=== PATIENT | female | born 1985 | race African-American/Black ===

== ENCOUNTER 2016-07-23 19:11 | Emergency (ER) | payer SELFPAY ==
[~2016-07-23] VITALS: Ht 160 cm; Wt 54.4 kg
[2016-07-23] MEDS ORDERED: NKM (19:44)
[2016-07-23] MEDS ORDERED: BACITRACIN1 APPLIC TOPIC (20:11)
[2016-07-23] MEDS ORDERED: KEFLEX500 MG ORAL (20:11)
[2016-07-23 20:30] VITALS: BP 122/86
[2016-07-23] MEDS: TdaP Vaccine 0.5ml Syr IM ONE (20:37)
--- NOTE | 2016-07-23 22:26 | Emergency Room Report ---
History of Present Illness General Chief Complaint: Laceration Source: Patient Present Illness HPI The patient is a 30-year-old female presenting with right leg pain which began 3 weeks prior. The patient states that she was exercising and hit her cain on a metal box. Pain is described as a 5/10 dull ache and does not radiate from the mid lower leg. Patient has also noticed a white to yellow discharge from the area. Pain is worse with touch. Patient denies any other symptoms including N, V,F, chills, numbness/tingling. Allergies: Coded Allergies: No Known Allergies (Unverified , 07/23/16) Patient History Past Medical History: see triage record Pertinent Family History: none Last Menstrual Period: 06/26/16 Now: No : 1 Para: 0 Reviewed Nursing Documentation: PMH: Agreed, PSxH: Agreed Nursing Documentation-PMH Hx Asthma: Yes Review of Systems All Other Systems: negative except mentioned in HPI Physical Exam Vital Signs Date Time Temp Pulse Resp B/P Pulse Ox O2 Delivery O2 Flow Rate FiO2 07/23/16 19:39 97.9 79 16 122/86 95 Room Air Sp02 EP Interpretation: reviewed, normal General Appearance: no apparent distress, alert, GCS 15, non-toxic Head: normocephalic, atraumatic Eyes: bilateral eye PERRL, bilateral eye normal inspection Musculoskeletal: normal range of motion, tender - TTP over mid tibia Neurologic: alert, oriented x3, responsive, motor strength/tone normal, sensory intact, speech normal Psychiatric: judgement/insight normal, memory normal, mood/affect normal, no suicidal/homicidal ideation Skin: other - R mid tibia: erythema and white DC Lymphatic: no adenopathy Medical Decision Making PA Attestation Dr. Calix is my supervising physician. Patient management was discussed with my supervising physician Diagnostic Impression: Primary Impression: Wound infection ER Course The patient is a 30-year-old female presenting with right leg pain which began 3 weeks prior. Ddx considered include but not limited to sprain/strain, fracture, contusion, cellulitis, abscess Physical exam: Vitals are within normal limits. No apparent distress Right lower leg: There is tenderness to palpation over the mid tibia with overlying erythema and white discharge within the wound. Sensation intact to light-touch. Normal gait. Patient has refused x-ray Patient is given Tylenol for pain The patient is discharged home with a prescription for Keflex and bacitracin and will followup with PMD. ER precautions are given Last Vital Signs Date Time Temp Pulse Resp B/P Pulse Ox O2 Delivery O2 Flow Rate FiO2 07/23/16 20:30 97.9 96 16 122/86 95 Room Air Status: improved Disposition: HOME, SELF-CARE Condition: Improved Scripts Bacitracin (Bacitracin Zinc) 15 Gm Oint...g. 1 APPLIC TOPIC TID, #15 GM Prov: JAYNE NOEL 07/23/16 Cephalexin* (KEFLEX*) 500 Mg Capsule 500 MG ORAL EVERY 6 HOURS, #28 CAP 0 Refills Prov: JAYNE NOEL 07/23/16 Referrals: NOT CHOSEN IPA/,REFERRING (PCP) Patient Instructions: Wound Infection Additional Instructions: I discussed my findings with the patient. All questions and concerns have been answered. Treatment and medication compliance have been addressed. I advised the patient that they need to follow up with PMD in 3-5 days. Return to ED if symptoms worsen, new symptoms arise, or if needed for any reason. Patient verbalized understanding of discharge instructions. JAYNE NOEL Jul 23, 2016 22:26
== END 2016-07-23 20:30 | disposition home or self-care (01) ==
LOC: EMR 19:45
DX: S81.801A Unspecified open wound, right lower leg, initial encounter (principal); L08.9 Local infection of the skin and subcutaneous tissue, unspecified; W22.8XXA Striking against or struck by other objects, initial encounter; Y92.9 Unspecified place or not applicable; Z23 Encounter for immunization; J45.909 Unspecified asthma, uncomplicated
CPT/HCPCS: 90471; 90715; 96372; 99284